=== PATIENT | male | born 2000 | race Two or more races ===

== ENCOUNTER 2019-02-18 02:03 | Emergency (ER) | payer MEDICAID ==
[~2019-02-18] VITALS: Ht 185.4 cm; Wt 74.8 kg
[2019-02-18 02:21] VITALS: BP 137/66
== END 2019-02-18 02:28 ==
LOC: ER 02:07
DX: Z02.89 Encounter for other administrative examinations (principal); R53.1 Weakness; F12.10 Cannabis abuse, uncomplicated